=== PATIENT | male | born 1995 | race Caucasian/White ===

== ENCOUNTER 2022-07-26 19:12 | Emergency (ER) | payer OTHER ==
[~2022-07-26] VITALS: Ht 177.8 cm; Wt 90.7 kg
[2022-07-26] MEDS ORDERED: HYDROCODONE-AC1 EAC1 PO (20:02)
[2022-07-26] MEDS ORDERED: AMOX-CLAV 875-1 EACH PO (20:02)
== END 2022-07-26 20:21 | disposition home or self-care (01) ==
LOC: ED 19:12
DX: K04.7 Periapical abscess without sinus (principal); F17.200 Nicotine dependence, unspecified, uncomplicated